=== PATIENT | male | born 1970 | race Caucasian/White ===

== ENCOUNTER 2018-09-21 08:59 | Emergency (ER) | payer SELFPAY ==
[2018-09-21 09:07] VITALS: BP 143/98
[2018-09-21] MEDS ORDERED: CIPROFLOXACIN HCL/DEXAMETH OTIC DROP 7.5 ML AS ONE (09:31)
--- NOTE | 2018-09-21 09:31 | ER Document Report ---
HPI - HPI Time Seen by Provider: 09/21/18 09:21 Pain Level: 5 Context: Patient is a 47-year-old male who presents to the emergency department with a chief complaint of left ear pain. He states the pain is a sharp pain and states that it is affecting his balance. He does have purulent drainage from the left ear. He has been using Q-tips to help clear his ears. On August 24 he was seen by urgent care and given ciprofloxacin drops and Augmentin. Denies any fever, vomiting, or vertigo. Denies pain mastoid process. - CONSTITUTIONAL Constitutional: DENIES: Fever, Chills - EENT EENT: REPORTS: Ear Pain - left. DENIES: Sore Throat, Eye problems - NEURO Neurology: DENIES: Headache, Weakness, Vision blurred, Dizzinesss / Vertigo - CARDIOVASCULAR Cardiovascular: DENIES: Chest pain - RESPIRATORY Respiratory: DENIES: Trouble Breathing, Coughing - GASTROINTESTINAL Gastrointestinal: DENIES: Abdominal Pain, Black / Bloody Stools - URINARY Urinary: DENIES: Dysuria, Urgency, Frequency - MUSCULOSKELETAL Musculoskeletal: DENIES: Extremity pain Past Medical History - General Information source: Patient - Social History Smoking Status: Current Every Day Smoker Chew tobacco use (# tins/day): No Frequency of alcohol use: None Drug Abuse: Marijuana Family History: Reviewed & Not Pertinent Patient has suicidal ideation: No Patient has homicidal ideation: No Renal/ Medical History: Denies: Hx Peritoneal Dialysis Vertical Provider Document - CONSTITUTIONAL Agree With Documented VS: Yes Exam Limitations: No Limitations General Appearance: No Apparent Distress - INFECTION CONTROL TRAVEL OUTSIDE OF THE [place] IN LAST 30 DAYS: No - HEENT HEENT: Atraumatic, Normocephalic, Tympanic Membrane Red - Left, Tympanic Membrane Bulging - Left - NECK Neck: Normal Inspection - RESPIRATORY Respiratory: Breath Sounds Normal, No Respiratory Distress - CARDIOVASCULAR Cardiovascular: Regular Rate, Regular Rhythm - MUSCULOSKELETAL/EXTREMETIES Musculoskeletal/Extremeties: FROM - NEURO Level of Consciousness: Awake, Alert, Appropriate - DERM Integumentary: Warm, Dry Course - Re-evaluation Re-evalutation: 09/21/18 09:31 Patient does have purulence to left ear canal along with edema. He will be started on Ciprodex and Augmentin. I suspect patient did not have full relief of his symptoms due to being only on Cipro and for start of Ciprodex eardrops. He had also been using Q-tips to help clear his ear. I advised him that he needs to stop using Q-tips to clean his ears. I do not suspect mastoiditis. Verbal discharge instructions were given to the patient. They verbalized under standing. They are stable for discharge. - Vital Signs Vital signs: Temp Pulse Resp BP Pulse Ox 97.7 F 82 20 143/98 H 98 09/21/18 09:05 09/21/18 09:05 09/21/18 09:05 09/21/18 09:05 09/21/18 09:05 Discharge - Discharge Clinical Impression: Otitis externa Qualifiers: Otitis externa type: noninfectious Noninfectious otitis externa type: other type Chronicity: acute Laterality: left Qualified Code(s): H60.592 - Other noninfective acute otitis externa, left ear Otitis media Qualifiers: Otitis media type: mucoid Chronicity: acute Laterality: left Qualified Code(s): H65.112 - Acute and subacute allergic otitis media (mucoid) (sanguinous) (serous), left ear Condition: Stable Disposition: HOME, SELF-CARE Instructions: Acetaminophen, Use of Ear Drops ([facility]), Otitis Externa ([facility]) Additional Instructions: You were seen today in the emergency department for left ear pain. You have an infection of your inner and outer ear. You have been given antibiotics. Finish all your antibiotics as prescribed. For your eardrops, please 4 drops to the affected ear twice a day for 7 days. Please follow-up with a primary care provider in regards to this issue. You can take 600 mg of ibuprofen and 1000 mg of Tylenol every 6 hours as needed for any fever or pain. Prescriptions: Amox Tr/Potassium Clavulanate [Augmentin 875-125 Tablet] 1 tab PO BID 10 Days tablet
== END 2018-09-21 09:54 | disposition home or self-care (01) ==
LOC: ER 08:59
DX: H65.112 Acute and subacute allergic otitis media (mucoid) (sanguinous) (serous), left ear (principal); H60.502 Unspecified acute noninfective otitis externa, left ear; H92.02 Otalgia, left ear; F17.200 Nicotine dependence, unspecified, uncomplicated; F12.10 Cannabis abuse, uncomplicated
CPT/HCPCS: 99282; J3490